=== PATIENT | male | born 1970 | race Caucasian/White ===

== ENCOUNTER 2024-03-03 14:02 | Emergency (ER) | payer MEDICAID ==
[~2024-03-03] VITALS: Ht 172.7 cm; Wt 75.0 kg
[2024-03-03] MEDS ORDERED: IPRATROPIUM BROMIDE (0.02%) 0.5MG/2.5ML NEB HHN STA (14:14)
[2024-03-03] MEDS ORDERED: ALBUTEROL (0.083%) 2.5MG/3ML NEB HHN STA (14:14)
[2024-03-03] MEDS ORDERED: P20 PO (14:20)
[2024-03-03] MEDS ORDERED: ALBU6.7H15 INH (14:20)
[2024-03-03] MEDS: PREDNISONE 20MG TABLET PO STA (14:40)
[2024-03-03 14:45] LABS: HEMATOCRIT. 29.6 % (42.0-52.0); HEMOGLOBIN. 9.5 g/dL (14.0-18.0); MEAN CORPUSCULAR HEMOGLOBIN 25.7 pg (28.0-32.0); MEAN CORPUSCULAR HGB CONC 32.1 g/dL (31.0-37.0); MEAN CORPUSCULAR VOLUME 80.1 fL (80.0-94.0); MEAN PLATELET VOLUME 7.1 fl (7.4-10.4); PLATELET 447 x1000/uL (130-400); RED CELL DISTRIBUTION WIDTH 19.7 % (11.6-14.6); WHITE BLOOD COUNT 8.3 x1000/uL (4.5-11.0)
[2024-03-03 14:47] LABS: DIFFERENTIAL COMMENT 1
[2024-03-03 14:57] LABS: CHLORIDE 105 mEq/L (98-107); POTASSIUM 3.5 mEq/L (3.5-5.1); SODIUM 136 mEq/L (136-145)
[2024-03-03 14:58] LABS: CARBON DIOXIDE 25 mEq/L (21-32)
[2024-03-03 14:59] LABS: CALCIUM 8.5 mg/dL (8.7-10.4)
[2024-03-03 15:04] LABS: CREATININE 0.5 mg/dL (0.6-1.3); GLUCOSE 100 mg/dL (70-105)
[2024-03-03 15:05] LABS: TROPONIN I HIGH SENSITIVITY 19 ng/L (3.0-53)
[2024-03-03 15:15] VITALS: PULSE 88; RESP 20; O2SAT 98
[2024-03-03] MEDS: IPRATROPIUM BROMIDE (0.02%) 0.5MG/2.5ML NEB HHN NR (15:15)
[2024-03-03] MEDS: ALBUTEROL (0.083%) 2.5MG/3ML NEB HHN NR (15:15)
[2024-03-03 15:19] LABS: ANISOCYTOSIS 2+; NUCLEATED RED BLOOD CELLS 1 /100 WBC; PLATELET ESTIMATE INCREASED
[2024-03-03 15:40] LABS: UREA NITROGEN BLOOD < 5 mg/dL (9-23)
[2024-03-03 18:20] VITALS: BP 121/86; PULSE 76; RESP 16; TEMP 98.6
== END 2024-03-03 18:24 | disposition home or self-care (01) ==
LOC: ER 14:02
DX: J44.1 Chronic obstructive pulmonary disease with (acute) exacerbation (principal); F32.A Depression, unspecified; I10 Essential (primary) hypertension
CPT/HCPCS: 80048; 83880; 85025; 84484; 36415; 71045; 94640; 93005; 99285; J7512; Z7610 ×4